=== PATIENT | female | born 2000 | race Two or more races ===

== ENCOUNTER 2025-04-18 17:53 | Emergency (ER) | payer MEDICAID, OTHER ==
[~2025-04-18] VITALS: Ht 167.6 cm; Wt 110.0 kg
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
[2025-04-18 20:50] VITALS: BP 118/75; PULSE 89; RESP 16; TEMP 98.3; O2SAT 100
[2025-04-18] MEDS: IBUPROFEN 600 MG TAB PO ONE (20:50)
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
== END 2025-04-18 21:59 | disposition home or self-care (01) ==
LOC: EDBD 17:53 → ER 17:53
DX: S13.4XXA Sprain of ligaments of cervical spine, initial encounter (principal); S80.02XA Contusion of left knee, initial encounter; S80.12XA Contusion of left lower leg, initial encounter; Z88.0 Allergy status to penicillin; V89.2XXA Person injured in unspecified motor-vehicle accident, traffic, initial encounter; Y92.410 Unspecified street and highway as the place of occurrence of the external cause; Y93.89 Activity, other specified; Y99.8 Other external cause status
CPT/HCPCS: 29505; 29530; 72040; 73562